=== PATIENT | male | born 1965 ===

== ENCOUNTER 2017-08-11 10:41 | Emergency (ER) | payer MEDICAID, OTHER ==
[2017-08-11 10:42] VITALS: BMI 27.3
[2017-08-11 11:16] VITALS: BP 128/84; PULSE 83; RESP 18; TEMP 98.3; O2SAT 98
--- NOTE | 2017-08-11 12:06 | ED PDOC ---
HPI: General Adult Time Seen by Provider: 08/11/17 11:55 Chief Complaint (Nursing): Flu-like Symptoms Chief Complaint (Provider): Over 48 hours of tactile fever, chills, cough History Per: Patient History/Exam Limitations: no limitations Onset/Duration Of Symptoms: Days Have you had recent travel within the past 21 days to any of the following countries: [place], [place], [place] or [place]?: No Current Symptoms Are (Timing): Better Additional Complaint(s): Pt states the last 2 night he woke up sweating. No recent travel. Mild cough. Pt has been taking OTC medications for fever but none in the last 6 hours. Pt denies pain. No phlegm. Past Medical History Reviewed: Historical Data, Nursing Documentation, Vital Signs Vital Signs: Last Vital Signs Temp 98.3 F 08/11/17 11:12 Pulse 83 08/11/17 11:12 Resp 18 08/11/17 11:12 BP 128/84 08/11/17 11:12 Pulse Ox 98 08/11/17 12:06 - Medical History PMH: No Chronic Diseases Denies: Chronic Kidney Disease - Surgical History Surgical History: No Surg Hx - Family History Family History: States: No Known Family Hx - Living Arrangements Living Arrangements: With Family - Social History Current smoker - smoking cessation education provided: Yes Alcohol: None Drugs: Denies - Home Medications Home Medications: Ambulatory Orders Medication Instructions Recorded valACYclovir [Valtrex] 1 tab PO BID 01/14/17 - Allergies Allergies/Adverse Reactions: Allergies Allergy/AdvReac Type Severity Reaction Status Date / Time No Known Allergies Allergy Verified 01/14/17 08:22 Review of Systems ROS Statement: Except As Marked, All Systems Reviewed And Found Negative Constitutional: Positive for: Fever (No temp taken at home ). Negative for: Chills Cardiovascular: Negative for: Chest Pain, Palpitations Respiratory: Positive for: Cough. Negative for: Shortness of Breath, SOB with Exertion Physical Exam - Reviewed Nursing Documentation Reviewed: Yes Vital Signs Reviewed: Yes - Physical Exam Appears: Positive for: Well, Non-toxic, No Acute Distress Head Exam: Positive for: ATRAUMATIC, NORMAL INSPECTION, NORMOCEPHALIC Skin: Positive for: Normal Color, Warm, DRY Eye Exam: Positive for: Normal appearance ENT: Positive for: Normal ENT Inspection, Pharynx Is, TM Is/Are Neck: Positive for: Normal, Painless ROM Cardiovascular/Chest: Positive for: Regular Rate, Rhythm Respiratory: Positive for: Normal Breath Sounds. Negative for: Accessory Muscle Use, Respiratory Distress Back: Positive for: Normal Inspection Extremity: Positive for: Normal ROM Neurologic/Psych: Positive for: Alert, Oriented - ECG O2 Sat by Pulse Oximetry: 98 Medical Decision Making Medical Decision Making: Discussed length of symptoms and tamiflu with patient. Disposition - Clinical Impression Clinical Impression: Influenza-like symptoms - Disposition Disposition: Routine/Home Disposition Time: 12:00 Condition: STABLE Additional Instructions: Rest, lots of fluids. OTC medications for symptoms. Decrease smoking. Instructions: Influenza (ED) Forms: [employer] (Polish)
== END 2017-08-11 12:14 | disposition home or self-care (01) ==
LOC: H.ER 10:41
DX: J11.1 Influenza due to unidentified influenza virus with other respiratory manifestations (principal)

== ENCOUNTER 2017-08-27 11:36 | Emergency (ER) | payer MEDICAID, OTHER ==
[2017-08-27 11:37] VITALS: BMI 27.3
[2017-08-27 11:50] VITALS: BP 124/77; PULSE 69; RESP 16; TEMP 98.1; O2SAT 99
--- NOTE | 2017-08-27 12:14 | ED PDOC ---
Upper Extremity Pain/Injury Time Seen by Provider: 08/27/17 12:04 Chief Complaint (Nursing): Upper Extremity Problem/Injury Chief Complaint (Provider): right shoulder pain History Per: Patient History/Exam Limitations: no limitations Onset/Duration Of Symptoms: Days (x 1) Current Symptoms Are (Timing): Still Present Additional Complaint(s): 52 year old right hand dominant male presents to the ED complaining of right shoulder pain, onset last night. He fell and landed on his right shoulder. Patient took Motrin this morning with minimal relief. He denies any head injury or loss of consciousness. PMD: none provided Past Medical History Reviewed: Historical Data, Nursing Documentation, Vital Signs Vital Signs: Last Vital Signs Temp 98.1 F 08/27/17 11:47 Pulse 69 08/27/17 11:47 Resp 16 08/27/17 11:47 BP 124/77 08/27/17 11:47 Pulse Ox 99 08/27/17 11:47 - Medical History PMH: No Chronic Diseases - Surgical History Surgical History: Hernia Repair (x 2) - Family History Family History: States: No Known Family Hx - Living Arrangements Living Arrangements: With Family - Social History Current smoker - smoking cessation education provided: Yes Alcohol: Occasional Drugs: Denies - Home Medications Home Medications: Ambulatory Orders Medication Instructions Recorded valACYclovir [Valtrex] 1 tab PO BID 01/14/17 Cyclobenzaprine [Cyclobenzaprine 10 mg PO TID PRN #20 tab 08/27/17 HCl] Naproxen [Naprosyn] 500 mg PO BID #20 tab 08/27/17 traMADol [Ultram] 50 mg PO TID PRN #15 tab 08/27/17 - Allergies Allergies/Adverse Reactions: Allergies Allergy/AdvReac Type Severity Reaction Status Date / Time No Known Allergies Allergy Verified 01/14/17 08:22 Review of Systems ROS Statement: Except As Marked, All Systems Reviewed And Found Negative Musculoskeletal: Positive for: Shoulder Pain (right) Physical Exam - Reviewed Nursing Documentation Reviewed: Yes Vital Signs Reviewed: Yes - Physical Exam Appears: Positive for: Well, Non-toxic, No Acute Distress Head Exam: Positive for: ATRAUMATIC, NORMOCEPHALIC Skin: Positive for: Normal Color. Negative for: Rash Eye Exam: Positive for: EOMI, Normal appearance, PERRL Neck: Positive for: Normal, Painless ROM, Supple Extremity: Positive for: Tenderness (anterior aspect of right shoulder), Swelling (anterior aspect of right shoulder), Other (decreased range of motion at right shoulder and strong right hand staffing program manager). Negative for: Normal ROM, Deformity Neurologic/Psych: Positive for: Alert, Oriented, Gait (steady). Negative for: Motor/Sensory Deficits - ECG O2 Sat by Pulse Oximetry: 99 (RA) Pulse Ox Interpretation: Normal - Other Rad Right shoulder x-ray X-Ray: Interpreted by Me, Viewed By Me X-Ray Interpretation: no fx, no dis, degenerative changes Medical Decision Making Medical Decision Making: Time: 12:24 Impression: 52 year old male with right shoulder injury Initial Plan: --Toradol 30 mg IM --Tylenol 975 mg PO --Tramadol 50 mg PO --Right shoulder x-ray Patient states pain is improved after meds given. He is aware of x-ray results. Sling applied to right arm. Patient given prescriptions for Naprosyn, tramadol and Flexeril. He was referred to orthopedist business solutions analyst for follow-up. Scribe Attestation: Documented by Sola Christy, acting as a scribe for Kacy Hoskins PA-C Provider Scribe Attestation: All medical record entries made by the Scribe were at my direction and personally dictated by me. I have reviewed the chart and agree that the record accurately reflects my personal performance of the history, physical exam, medical decision making, and the department course for this patient. I have also personally directed, reviewed, and agree with the discharge instructions and disposition. Procedures - Splinting Location: Right arm Pre-Made Type: sling Pre-Proc Neuro Vasc Exam: normal Post-Proc Neuro Vasc Exam: normal Disposition - Clinical Impression Clinical Impression: Right shoulder strain - Patient ED Disposition Is Patient to be Admitted: No Counseled Patient/Family Regarding: Studies Performed, Diagnosis, Need For Followup, Rx Given - Disposition Referrals: Humberto Campos MD [Medical Doctor] - Disposition: Routine/Home Disposition Time: 13:03 Condition: STABLE Additional Instructions: Take prescription medications as directed as needed for pain. Rest and ice affected area. Follow-up with orthopedist for any persistent symptoms. Prescriptions: Cyclobenzaprine [Cyclobenzaprine HCl] 10 mg PO TID PRN #20 tab PRN Reason: Muscle Spasm Naproxen [Naprosyn] 500 mg PO BID #20 tab traMADol [Ultram] 50 mg PO TID PRN #15 tab PRN Reason: Pain, Moderate (4-7) Instructions: Shoulder Sprain Forms: [employer] (Kiswahili)
--- NOTE | 2017-08-27 13:59 | RAD ---
PROCEDURE: Radiographs of the Right Shoulder HISTORY: trauma COMPARISON: No prior. FINDINGS: BONES: No evidence of acute fracture. JOINTS: [id number] osteoarthritic changes more prominent at the AC joint P SOFT TISSUES: Normal. OTHER FINDINGS: None. IMPRESSION: No evidence of acute fracture or dislocation. Moderate osteoarthritic changes.
== END 2017-08-27 13:36 | disposition home or self-care (01) ==
LOC: H.ER 11:36
DX: S46.911A Strain of unspecified muscle, fascia and tendon at shoulder and upper arm level, right arm, initial encounter (principal); W19.XXXA Unspecified fall, initial encounter
CPT/HCPCS: 73030; 96372; 99284; J1885